=== PATIENT | female | born 1990 | race Caucasian/White ===

== ENCOUNTER 2019-03-27 23:43 | Inpatient (IN) ==
[2019-03-27] MEDS ORDERED: LACTATED RINGER'S 1,000 ML IV SCH (23:45)
[2019-03-28] MEDS ORDERED: CEFAZOLIN 2000MG 2,000 MG/15 ML SYR IV STA (00:01)
[2019-03-28] MEDS ORDERED: CITRIC ACID/SODIUM CITRATE 15 ML UDC PO STA (00:02)
--- NOTE | 2019-03-28 00:04 | History & Physical Report ---
Date of Service March 27, 2019 Assessment & Plan (1) Breech presentation: Breech presentation confirmed on ultrasound. I have recommended section she is spontaneous rupture of membranes at 38 weeks and 6 days. Discussed the risks of including but not limited to the rest of infection bleeding injury to bowel bladder ureter vessels deep vein thrombosis pulmonary embolus and injury to the fetus discussed the alternative of labor but did not recommend History of Present Illness Primipara at 38 weeks and 6 days with spontaneous gross rupture of membranes baby is in breech position this was now and she was scheduled for a section this coming Saturday. However since because her membranes are ruptured C- section will be performed today She noticed the rupture very recently has had only a few contractions no significant bleeding states her fetus is active has been uncomplicated with the exception of the breech position. She is group B strep negative she is monitored for hypothyroidism Primary Care Provider: Radha Brown Allergies Allergy/AdvReac Type Severity Reaction Status Date / Time No Known Allergies Allergy Verified 03/23/19 12:23 Home Medications Home Medications Medication Instructions Recorded Confirmed Type PNV cmb#95-ferrous fumarate-FA 1 tab PO DAILY 03/23/19 03/23/19 History [] calcium carbonate [Calcium 500] 500 mg PO QAM 03/23/19 03/23/19 History clindamycin phosphate 1 applic TOPICAL BID 03/23/19 03/23/19 History ferrous sulfate [Iron (ferrous 325 mg PO QPM 03/23/19 03/23/19 History sulfate)] levothyroxine 75 mcg PO QAM 03/23/19 03/23/19 History levothyroxine 150 mcg PO WK 03/23/19 03/23/19 History omega 8-oqj-roo-fish oil [Kittrell-3] 1 tab PO Q OTHER DAY 03/23/19 03/23/19 History Past Med/Surg History Medical History Breech presentation of fetus scheduled c/s on 03/30/19 Ryan's thyroiditis Hypothyroidism Surgical History No history of previous surgery Social History Preferred Language: Maori Communication Ability: Effective Beliefs That Will Affect Care: None marital status: Single Current Living Situation: Family Feels Safe at Home: Yes Smoking Status: Former smoker Hx Alcohol Use: No Hx Substance Use: No Physical Exam Constitutional: WD/WN, vitals as above Respiratory: normal respiratory effort, lungs clear to auscultation Cardiovascular: RRR, no murmur, no edema Genitourinary: normal external appearance OB Exam Abdomen: + breech Manual OB Exam: + cervical dilation (closed) and + amniotic fluid meconium OB Exam Monitor Tracing: + external FHT monitor used
[2019-03-28 00:24] LABS: Basophils # (auto) 0.01 K/uL (0-0.2); Basophils % (auto) 0.1 %; Eosinophils # (auto) 0.09 K/uL (0-0.5); Eosinophils % (auto) 1.1 %; Hematocrit (blood only) 33.7 % (37-47); Hemoglobin 11.8 g/dL (12.0-16.0); Immature Granulocytes # (auto) 0.02 K/uL (0.00-0.02); Immature Granulocytes % (auto) 0.2 %; Lymphocytes # (auto) 2.12 K/uL (1.2-3.4); Lymphocytes % (auto) 25.3 %; Mean Corpuscular Volume 88.5 fL (80-100); Mean Platelet Volume 9.3 fL (7.4-10.4); Monocytes # (auto) 0.75 K/uL (0.11-0.59); Monocytes % (auto) 8.9 %; Neutrophils # (auto) 5.39 K/uL (1.4-6.5); Neutrophils % (auto) 64.4 %; Platelet Count 215 K/uL (130-400); RDW Coefficient of Variation 13.3 % (11.5-14.5); RDW Standard Deviation 43.1 fL (36.4-46.3); Red Blood Count 3.81 M/uL (4.2-5.4); White Blood Count 8.38 K/uL (4.8-10.8)
[2019-03-28] MEDS ORDERED: MoRPHine SULFATE 2 MG/ML CARP IV PRN (00:32)
[2019-03-28] MEDS ORDERED: NALOXONE HCL 0.08 MG in SYRINGE 1.8 ML IV PRN (00:32)
[2019-03-28] MEDS ORDERED: NALOXONE HCL 1 MG in SODIUM CHLORIDE 0.9% 1000ML 1,000 ML IV PRN (00:32)
[2019-03-28] MEDS ORDERED: HYDROmorphone INJ 0.5 MG/0.5 ML SYR IV PRN (00:32)
[2019-03-28] MEDS ORDERED: ONDANSETRON INJ 2 MG/ML 2 ML VIAL IV PRN ×2 (00:32→18:32)
[2019-03-28] MEDS ORDERED: ePHEDrine sulfate 50 MG/ML AMP IV PRN (00:32)
[2019-03-28] MEDS ORDERED: NALOXONE HCL 0.4 MG/1 ML VIAL/CARP IV PRN (00:32)
[2019-03-28] MEDS ORDERED: NALBUPHINE HCL INJ 10 MG/ML AMP IV PRN (00:32)
[2019-03-28] MEDS ORDERED: MEPERIDINE HCL 25 MG/ML CARP IV PRN (00:32)
[2019-03-28] MEDS ORDERED: LACTATED RINGER'S 500 ML IV PRN (00:32)
[2019-03-28] MEDS ORDERED: PROMETHAZINE HCL 6.25 MG in SODIUM CHLORIDE 0.9% 50 ML IV PRN (00:32)
[2019-03-28] MEDS ORDERED: MoRPHine SULFATE PF 1 MG/ML 10 ML AMP/VIAL INT SPINAL ONE (00:32)
[2019-03-28] MEDS ORDERED: DiphenhydrAMINE HCL 50 MG/ML VIAL IV PRN ×2 (00:32→18:32)
[2019-03-28] MEDS ORDERED: MoRPHine SULFATE PF 1 MG/ML 10 ML AMP/VIAL ONE (00:34)
[2019-03-28] MEDS ORDERED: fentaNYL citrate 100 MCG/2 ML VIAL ONE (00:34)
[2019-03-28] MEDS ORDERED: NO NARCOTICS OR SEDATIVES SCH (00:45)
[2019-03-28] MEDS ORDERED: DC INTRASPINAL MORPHINE SCH (00:45)
[2019-03-28] MEDS ORDERED: SODIUM CHLORIDE 0.9% 1000ML 1,000 ML IV SCH (00:45)
[2019-03-28] MEDS ORDERED: LACTATED RINGER'S 1,000 ML IV SCH ×2 (00:57→02:00)
[2019-03-28] MEDS ORDERED: ONDANSETRON INJ 2 MG/ML 2 ML VIAL ONE (01:41)
[2019-03-28] MEDS ORDERED: KETOROLAC 30 MG/ML VIAL ONE (01:41)
[2019-03-28] MEDS ORDERED: OXYTOCIN 10 UNITS/ML VIAL ONE (01:41)
[2019-03-28] MEDS ORDERED: LABETALOL HCL IV 5 MG/ML 20ML IV ONE (01:42)
--- NOTE | 2019-03-28 01:49 | Operative Report ---
Post Operative Report Pre & Post Diagnosis Operation Date: 03/27/19 23:50 <No data on this case meets the specified criteria> Procedure Preoperative diagnosis breech presentation with rupture of membranes postoperative diagnosis the same Operation Date: 03/27/19 23:50 <No data on this case meets the specified criteria> Low segment transverse section Surgeon Hong Sierra MD, FACOG [employer] None Estimated Blood Loss 600 Findings Consistent with Post-Op Diagnosis Specimens Cord gases cord blood Description of Procedure Patient given a spinal anesthetic by anesthesia prepped and draped in supine position with a leftward tilt IV Ancef given preoperatively pickups with teeth tested to make sure the skin incision area was adequate Pfannenstiel incision then made with scalpel note Gupta catheter been placed prior as well. Dissecting down through subtenons fat to the fascia in the midline cutting the fascia laterally with the curved Willis scissors and then releasing the fascia ant eriorly and superiorly or from its rectus muscle attachments rectus muscle split peritoneal cavity entered in a superior location peritoneal cavity opening enlarged to allow exposure bladder flap was exposed using the bladder retractor Metruperto used to dissect this away bladder retractor readjusted scalpel used to make a low transverse incision on the uterus and she was done bluntly with the operator automated process's finger incision extended on the uterus in the usual fashion with the operator automated process's finger baby was delivered by flexion of the hips and then pressure by the abdomen by the cafe assistant was able to rotate the back anterior and then deliver both legs each arm was then swept across the chest and delivered and baby was then had its head delivered without excessive extension or forced live vigorous female cord clamped and cut cord gases obtained placenta removed uterus exteriorized IV Pitocin started we ensured all placenta material removed with a moist lap hemostasis improved with IV Pitocin uterus closed in 2 layers first a running 0 Monocryl locked in the second reinforcing 0 Monocryl at this stage after generous irrigation and suction hemostasis was excellent we irrigated the cul-de-sac as well there was a slight pinkish tinge to the urine at this time however it was clearing by the end of the procedure and careful inspection revealed the bladder was normal and there is no sign of injury. We inspected for bleeding in the subfascial space and this was hemostatic fascia closed with 0 Vicryl subtendinous fat irrigated and closed with 3-0 Vicryl 4-0 subcuticular Monocryl closure and Steri-Strips applied sponge and instrument counts correct I attest to the content of the Intraoperative Record and any orders documented therein. Any exceptions are noted below.
[2019-03-28] MEDS ORDERED: MAGNESIUM HYDROXIDE SUSP 30 ML UDC PO PRN (01:51)
[2019-03-28] MEDS ORDERED: SUPERCREAM 0.870% 15 GM JAR EXT PRN (01:51)
[2019-03-28] MEDS ORDERED: HYDROCORTISONE ACETATE 25 MG SUPP PR PRN (01:51)
[2019-03-28] MEDS ORDERED: BENZOCAINE 20% AER SPR 82.5 GM CAN EXT PRN (01:51)
[2019-03-28] MEDS ORDERED: SENNA 8.6 MG TAB PO PRN (01:51)
--- NOTE | 2019-03-28 01:59 | Anesthesiology Progress Note ---
Date of Service March 28, 2019 Anesthesia Post Procedure Vital Signs Vital Signs: Temp Pulse Resp BP Pulse Ox 03/28/19 01:55 73 100 03/28/19 01:52 72 120/71 03/28/19 01:50 77 123/75 99 03/28/19 00:21 82 125/82 03/28/19 00:14 37 C 82 18 125/82 Notes Mental Status: alert / awake / arousable Nausea / Vomiting: adequately controlled Pain: adequately controlled Airway Patency, RR, SpO2: stable & adequate BP & HR: stable & adequate Hydration State: stable & adequate Neuraxial Anesthesia: was administered and sensory block is resolving Anesthetic Complications: no major complications apparent
[2019-03-28 02:10] LABS: Base Excess Cord Arterial Bld -1.3 mEq/L (-9-1.8); CO2 Cord Arterial Blood 54 mmHg (39.1-73.5); HCO3 Cord Arterial Blood 26 mmol/L (19.7-28.5); PO2 Cord Arterial Blood 19.3 % (4.1-31.7)
[2019-03-28 02:11] LABS: Base Excess Cord Venous Blood -1.6 mEq/L (-7.7-1.9); Cord Venous Blood HCO3 24 mmol/L (18.4-26.8); Cord Venous Blood PCO2 43 mmHg (30.4-57.2); Cord Venous Blood PO2 31 mmHg (14.1-43.3); Cord Venous Blood pH 7.37 (7.20-7.44)
[2019-03-28] MEDS: KETOROLAC 30 MG/ML VIAL IV PRN ×2 (03:03→15:24)
[2019-03-28] MEDS: OXYTOCIN 20 UNITS in LACTATED RINGER'S 1,000 ML IV SCH ×2 (04:11→12:53)
[2019-03-28] MEDS: LEVOTHYROXINE SODIUM 75 MCG TABLET PO SCH (08:28)
[2019-03-28] MEDS ORDERED: NON-FORMULARY MEDICATION (Prenatal Vit-Iron Fum-Folic Ac [Prenatal Vitamin] 1 TAB) PO SCH (09:00)
[2019-03-28] MEDS: CALCIUM CARBONATE 1250MG TAB PO SCH (09:13)
[2019-03-28] MEDS: SIMETHICONE 80 MG CHEW PO SCH ×4 (09:14→21:12)
[2019-03-28] MEDS: FERROUS SULFATE 325 MG TAB PO SCH (09:14)
[2019-03-28] MEDS: PRENATAL VITAMIN 1 TAB PO SCH (09:14)
[2019-03-28] MEDS: DOCUSATE SODIUM 100 MG CAP PO SCH ×2 (09:18→21:10)
[2019-03-28] MEDS ORDERED: COUGH DROP (SUGAR FREE) LOZ 24 LOZ/1 BOX BUCCAL ONE (13:44)
[2019-03-28] MEDS ORDERED: MEPERIDINE HCL 50 MG/ML CARP IV PRN (18:32)
[2019-03-28] MEDS ORDERED: KETOROLAC 30 MG/ML VIAL IV PRN (18:32)
[2019-03-28] MEDS ORDERED: PROMETHAZINE HCL 25 MG in SODIUM CHLORIDE 0.9% 50 ML IV PRN (18:32)
[2019-03-28] MEDS: OXYCODONE/ACETAMINOPHEN 5mg/325mg TAB PO PRN (21:07)
[2019-03-28] MEDS: IBUPROFEN 600 MG TAB PO PRN (21:09)
[2019-03-29] MEDS: OXYCODONE/ACETAMINOPHEN 5mg/325mg TAB PO PRN ×4 (01:59→19:33)
[2019-03-29] MEDS: IBUPROFEN 600 MG TAB PO PRN ×4 (02:00→19:33)
[2019-03-29 07:21] LABS: Basophils # (auto) 0.01 K/uL (0-0.2); Basophils % (auto) 0.1 %; Eosinophils # (auto) 0.08 K/uL (0-0.5); Hemoglobin 10.5 g/dL (12.0-16.0); Immature Granulocytes # (auto) 0.02 K/uL (0.00-0.02); Immature Granulocytes % (auto) 0.3 %; Lymphocytes # (auto) 1.92 K/uL (1.2-3.4); Lymphocytes % (auto) 24.7 %; Mean Corpuscular Hgb Conc 33.9 g/dL (32-36); Mean Corpuscular Volume 89.6 fL (80-100); Mean Platelet Volume 8.8 fL (7.4-10.4); Monocytes # (auto) 0.78 K/uL (0.11-0.59); Neutrophils # (auto) 4.97 K/uL (1.4-6.5); Neutrophils % (auto) 63.9 %; Platelet Count 158 K/uL (130-400); RDW Coefficient of Variation 13.7 % (11.5-14.5); RDW Standard Deviation 44.6 fL (36.4-46.3); Red Blood Count 3.46 M/uL (4.2-5.4); White Blood Count 7.78 K/uL (4.8-10.8)
[2019-03-29] MEDS: LEVOTHYROXINE SODIUM 75 MCG TABLET PO SCH (07:40)
[2019-03-29] MEDS: DOCUSATE SODIUM 100 MG CAP PO SCH ×2 (08:54→19:35)
[2019-03-29] MEDS: SIMETHICONE 80 MG CHEW PO SCH ×4 (08:54→19:34)
[2019-03-29] MEDS: PRENATAL VITAMIN 1 TAB PO SCH (08:54)
[2019-03-29] MEDS: FERROUS SULFATE 325 MG TAB PO SCH (08:55)
[2019-03-29] MEDS: CALCIUM CARBONATE 1250MG TAB PO SCH (08:55)
[2019-03-29] MEDS ORDERED: DIPHTHERIA/TETANUS/PERTUSSIS 0.5 ML SYR/VIAL IM ONE (09:00)
--- NOTE | 2019-03-29 09:04 | Obstetrical Progress Note ---
Date of Service March 29, 2019 Assessment & Plan (1) care following delivery: satisfactory post-op progress dressing to be removed this morning continue current care plan Present on Admission?: No Day #:: 1 Subjective Ambulation: ambulating normally Voiding: no voiding problems Passing Gas:: Yes Diet Tolerance:: regular diet Lochia:: Moderate Feeding Type:: breast feeding Current Pain Level(1-10): 2 Review of Systems All systems reviewed & are unremarkable except as noted in HPI & below Physical Exam Vital Signs (Past 24 Hours) Last Vital Signs Temp 98.1 F 03/29/19 00:32 Pulse 71 03/29/19 00:32 Resp 20 03/29/19 00:32 BP 124/81 03/29/19 00:32 Pulse Ox 97 03/29/19 00:32 Constitutional WD/WN, vitals as above Gastrointestinal (Abdomen) normal bowel sounds, soft, nontender, no hepatosplenomegaly dressing dry & intact Musculoskeletal no calf tenderness Genitourinary OB Exam Abdomen: + fundal height Fundus: + firm and + relation to umbilicus (at U)
[2019-03-29] MEDS ORDERED: BISACODYL 5 MG TABEC PO SCH (20:00)
[2019-03-30] MEDS: IBUPROFEN 600 MG TAB PO PRN ×5 (01:25→19:24)
[2019-03-30] MEDS: OXYCODONE/ACETAMINOPHEN 5mg/325mg TAB PO PRN ×5 (01:25→19:24)
[2019-03-30] MEDS ORDERED: BISACODYL 10 MG SUPP PR PRN (01:51)
[2019-03-30] MEDS: LEVOTHYROXINE SODIUM 75 MCG TABLET PO SCH (06:18)
[2019-03-30 07:22] LABS: Hematocrit (blood only) 30.8 % (37-47); Hemoglobin 10.5 g/dL (12.0-16.0)
--- NOTE | 2019-03-30 07:32 | Obstetrical Progress Note ---
Date of Service <Janae Dumont MD - Last Filed: 03/30/19 07:32> March 30, 2019 Assessment & Plan <Janae Dumont MD - Last Filed: 03/30/19 07:32> (1) care following delivery: 28yo with for breech presentation. PPD #2 -Routine care -Ambulation encouraged -Pain control Subjective <Jaane Dumont MD - Last Filed: 03/30/19 07:32> Ambulation: ambulating normally Voiding: no voiding problems Passing Gas:: Yes Diet Tolerance:: regular diet Lochia:: Moderate Feeding Type:: breast feeding (with bottle supplementation) Current Pain Level(1-10): 8 Eyes: no problem reported Respiratory: no dyspnea Cardiovascular: no chest pain, no palpitations, no edema and no calf pain Gastrointestinal: no nausea and no vomiting Genitourinary (female): no dysuria Neurologic: no headache(s) Physical Exam <Janae Dumont MD - Last Filed: 03/30/19 07:32> Vital Signs (Past 24 Hours) Last Vital Signs Temp 36.8 C 03/30/19 00:15 Pulse 71 03/30/19 00:15 Resp 16 03/30/19 00:15 BP 127/81 03/30/19 00:15 Pulse Ox 97 03/30/19 00:15 Respiratory normal respiratory effort, lungs clear to auscultation Cardiovascular Rate/Rhythm: regular rate and regular rhythm Extremities: no calf tenderness and no pedal edema Gastrointestinal (Abdomen) Inspection/Auscultation: + abdominal surgical incision (clean, dry, intact. No evidence of bleeding or drainage.) Genitourinary OB Exam Abdomen: + fundal height Fundus: + firm and + relation to umbilicus (at umbilicus) <Flory Newberry MD, FACOG - Last Filed: 03/30/19 07:41> Co-Signing Physician Notes Resident Physician Supervision Note: I interviewed and examined the patient. Discussed with Dr. Janae Dumont MD and agree with findings and plan as documented in the note. Any exceptions or clarifications are listed here: [None] Documented By: Flory Newberry MD, FACOG
[2019-03-30] MEDS: SIMETHICONE 80 MG CHEW PO SCH ×4 (09:34→19:25)
[2019-03-30] MEDS: DOCUSATE SODIUM 100 MG CAP PO SCH ×2 (09:38→19:25)
[2019-03-30] MEDS: CALCIUM CARBONATE 1250MG TAB PO SCH (09:38)
[2019-03-30] MEDS: FERROUS SULFATE 325 MG TAB PO SCH (09:38)
[2019-03-30] MEDS: PRENATAL VITAMIN 1 TAB PO SCH (09:40)
[2019-03-30] MEDS ORDERED: ZOLPIDEM TARTRATE 5 MG TAB PO PRN (17:19)
--- NOTE | 2019-03-30 17:30 | Obstetrical Progress Note ---
Date of Service March 30, 2019 Assessment & Plan (1) care following delivery: (2) Headache: (3) Elevated blood pressure reading: will recheck bp 2hr from last. no other s/sx pp preeclampsia but will watch. pt feels related to insomnia, she is made aware benadryl ordered and ambien. she could try either. her spouse is staying overnight with her and baby. Subjective visited with pt. notes frontal trinh, no sinus pain. no uri sx. she feels she is overly tired. breast feeding baby right now. denies cp/sob/n/v/ruq pain. no visual change. Physical Exam Constitutional: WD/WN, vitals as above Musculoskeletal: non tender calves, scds on and functioning Psychiatric: A+Ox3, euthymic affect Results & Data Vital Signs (Past 12 Hours) Vital Signs Temp Pulse Resp BP 03/30/19 15:55 97.9 F 61 20 148/92 H 03/30/19 14:00 73 18 127/88 03/30/19 08:00 97.9 F 62 18 131/85
--- OUTSIDE RECORDS SUMMARY | 2019-03-30 22:34 | External Medical Summary | Continuity of Care Document ---
:1990 Author Name Rohith Vivar, Provider Address Unavailable Unavailable , Care Team Providers Name Role Phone Kev Vivar, Carson Webb Unavailable [email or web address] [email or web address] Juan EDMONDS Unavailable Unavailable Unavailable Unavailable Unavailable Problems Ryan's thyroiditis (245.2) (E06.3) Hypothyroid in , antepartum, third trimester (648.1 3) (O99.283) Uterine size-date discrepancy in third trimester (649.63) (O 26.843) Encounter for supervision of normal firs t in third trimester (V22.0) (Z34.03) Breech presentation (652.20) (O32.1XX0) Acne (706.1) (L70.9) Fatigue (780.79) (R53.83) Allergies and Adverse Reactions No Known Drug Allergies (Allergy) Medications 27-1 MG Oral Tablet; TAKE 1 TABLET DAILY. Refills: 0 [place] 3 1000 MG Oral Capsule; TAKE 1 CAPSULE Daily Refills: 0 FeroSul 325 (65 Fe) MG Oral Tablet; TAKE 1 TABLET DAILY (30M G) DIRECTED. Refills: 0 Calcium 250 MG Oral Capsule; TAKE 100 MG Daily Start: 10-Sep-2018 Refills: 0 Levothyroxine Sodium 75 MCG Oral Tablet; TAKE 1 TABLET BY MOUTH DAILY WITH A GLASS OF WATER IN THE MORNING 30 MINUTES BEFORE EATING. Ghazala Angulo Start: 14-Oct-2018 Quantity: 90 Refills: 1 Clindamycin Phosphate 1 % External Gel; APPLY AND GENTLY MASSAGE INTO AFFECTED AREA(S) TWICE DAILY. DO Fanta Gold Start: 15-Dec-2018 Quantity: 1 60 GM Tube Refills: 1 Tums CHEW Refills: 0 Procedures Ultra TSH Date: 16-Feb-2019 Free T4 Date: 16-Feb-2019 History of Oral Surgery Tooth Extraction Status: Completed Immunizations Tdap (Adacel) On: 16-Jan-2019 14:11 Lot #: [id number], [employer] Family History Father Family history of hypertension (V17.49) (Z82.49) Status: Act zoltan Family history of thyroid disease (V18.19) (Z83.49) Status: Active Family history of depression (V17.0) (Z81.8) Status: Active Mother Family history of gestational diabetes (V18.0) (Z83.3) Statu s: Active Family history of Circulation problem (459.9) (I99.9) Status : Active Social History - Smoking Status Former smoker Plan of Treatment Planned Observations Planned Goals not documented Results Group B Strep/FERNANDEZ 11-Mar-2019 14:57 GRP B BETA STREP CULTURE - FERNANDEZ ORDERED P ROCEDURE : GRP B Beta Strep Culture -FERNANDEZ; Speciment : V aginal/Rectal Source of Specimen: Vaginal/ Rectal Group B St rep Culture : No Group B Strep isolated Vital Signs 27-Mar-2019 14:25 Systolic 120 mm[Hg] Diastolic 82 mm[Hg] Weight 158.5 lb Height 68 in BSA Calculated 1.85 m2 BMI Calculated 24.1 kg/m2 26-Mar-2019 13:26 Systolic 110 mm[Hg] Diastolic 72 mm[Hg] Weight 160.125 lb Height 68 in BSA Calculated 1.86 m2 BMI Calculated 24.35 kg/m2 19-Mar-2019 10:27 Systolic 118 mm[Hg] Diastolic 78 mm[Hg] Weight 155.125 lb Height 68 in BSA Calculated 1.83 m2 BMI Calculated 23.59 kg/m2 11-Mar-2019 10:20 Systolic 114 mm[Hg] Diastolic 74 mm[Hg] Weight 154.8 lb Height 68 in BSA Calculated 1.83 m2 BMI Calculated 23.54 kg/m2 Encounters Appointment; Almaz Gonzalez M.D. 27-Mar-2019 14:30 Encounter Diagnosis: Problem not documented Appointment; Flory Newberry M.D. 26-Mar-2019 13:20 Encounter Diagnosis: Problem not documented Appointment; Almaz Gonzalez M.D. 19-Mar-2019 10:30 Encounter Diagnosis: Problem not documented Appointment; Fanta Gold DO 11-Mar-2019 10:10 Encounter Diagnosis: Problem not documented Appointment; OBGYArben SC1, Ultrasound 02-Mar-2019 13:00 Encounter Diagnosis: Problem not documented Appointment; Dana Sood M.D. 25-Feb-2019 11:00 Encounter Diagnosis: Problem not documented Appointment; Giancarlo Brar M.D. 11-Feb-2019 14:00 Encounter Diagnosis: Problem not documented Appointment; Almaz Gonzalez M.D. 30-Jan-2019 13:50 Encounter Diagnosis: Problem not documented Appointment; Almaz Gonzalez M.D. 16-Jan-2019 13:50 Encounter Diagnosis: Problem not documented Appointment; Giancarlo Brar M.D. 06-Jan-2019 14:00 Encounter Diagnosis: Problem not documented Appointment; Fanta Gold DO 15-Dec-2018 10:20 Encounter Diagnosis: Problem not documented Appointment; Flory Newberry M.D. 10-Nov-2018 11:50 Encounter Diagnosis: Problem not documented Appointment; OBGYArben HURLEY1, Ultrasound 10-Nov-2018 11:00 Encounter Diagnosis: Problem not documented Appointment; Hong Sierra M.D. 16-Oct-2018 11:20 Encounter Diagnosis: Problem not documented Appointment; Almaz Gonzalez M.D. 18-Sep-2018 10:30 Encounter Diagnosis: Problem not documented Appointment; Carson Angulo M.D. 10-Sep-2018 9:30 Encounter Diagnosis: Problem not documented Appointment; OB SC1, Procedure Rm 21-Aug-2018 12:00 Encounter Diagnosis: Problem not documented Appointment; Hong Sierra M.D. 21-Aug-2018 12:00 Encounter Diagnosis: Problem not documented Appointment; OB SC1, Nursing [facility] 20-Aug-2018 8:45 Encounter Diagnosis: Problem not documented Appointment; Almaz Gonzalez M.D. 30-Mar-2019 8:00 Encounter Diagnosis: Problem not documented
[2019-03-31] MEDS: OXYCODONE/ACETAMINOPHEN 5mg/325mg TAB PO PRN ×2 (05:32→11:19)
[2019-03-31] MEDS: IBUPROFEN 600 MG TAB PO PRN ×2 (05:33→11:20)
[2019-03-31] MEDS: LEVOTHYROXINE SODIUM 75 MCG TABLET PO SCH (06:25)
--- NOTE | 2019-03-31 06:59 | Obstetrical Progress Note ---
Date of Service March 31, 2019 Assessment & Plan (1) care following delivery: routine pp care. instructions reviewed. f/u 6wks pp check. already given narcotic script from prior provider. advised how to wean off narcotic. (2) Headache: will use pain meds and see how she does, she may opt not to go home later today if kyle still bothering her. i do not feel its spinal kyle. she denies congestion. i do not think related to pp preeclampsia. Subjective Ambulation: ambulating normally Voiding: no voiding problems Passing Gas:: Yes Diet Tolerance:: regular diet Lochia:: Small Feeding Type:: breast feeding pain well controlled with pain meds. has frontal kyle on and off since yesterday pm. bps normal. she felt tired and when takes pain meds and gets rest says her Kyle improves. Physical Exam Vital Signs (Past 24 Hours) Last Vital Signs Temp 98.1 F 03/30/19 23:35 Pulse 64 03/30/19 23:35 Resp 16 03/30/19 23:35 BP 122/82 03/31/19 06:25 Pulse Ox 98 03/30/19 19:15 Constitutional WD/WN, vitals as above Respiratory normal respiratory effort, lungs clear to auscultation Cardiovascular Rate/Rhythm: regular rate and regular rhythm Gastrointestinal (Abdomen) ff 2 down, nt, incision c/d/i with steris Musculoskeletal nt calves. Neurologic grossly normal
[2019-03-31] MEDS: SIMETHICONE 80 MG CHEW PO SCH ×2 (09:03→13:37)
[2019-03-31] MEDS: FERROUS SULFATE 325 MG TAB PO SCH (09:03)
[2019-03-31] MEDS: PRENATAL VITAMIN 1 TAB PO SCH (09:03)
[2019-03-31] MEDS: CALCIUM CARBONATE 1250MG TAB PO SCH (09:03)
[2019-03-31] MEDS: DOCUSATE SODIUM 100 MG CAP PO SCH (09:03)
--- NOTE | 2019-04-01 08:02 | Discharge Summary ---
Date of Service April 01, 2019 POD #3 from C/S for breech presentation. Patient on 3rd day was doing well, met criteria as was ambulating, tolerating oral diet and oral pain meds. No ext pain. Exam was normal. Team assessed and reviewed plan for discharge Admission Exam (Per Admitting) Constitutional WD/WN, vitals as above Respiratory normal respiratory effort, lungs clear to auscultation Cardiovascular RRR, no murmur, no edema Gastrointestinal (Abdomen) normal bowel sounds, soft, nontender, no hepatosplenomegaly Inspection/Auscultation: + abdominal surgical scar (CDI) Discharge Data Consultations 03/27/19 23:57 Consult Anesthesiology Stat Procedures Performed Operation Date: 03/27/19 23:50 Actual Procedures p Section in LD. Low transverse uterine incision for live female infant @ 0111 - J. Aaron Sierra MD, FACOG
== END 2019-03-31 15:50 | disposition home or self-care (01) | DRG 788 ==
LOC: 4S1 23:43 → OPB 23:43 → 4S1 23:57 → 4S2 03-28 04:40